=== PATIENT | female | born 1990 | race Hispanic/Latino ===

== ENCOUNTER 2021-12-24 18:08 | Inpatient (IN) | payer MEDICAID, OTHER ==
[2021-12-24 19:06] VITALS: BMI 29.7
[2021-12-24] MEDS ORDERED: hydrALAZINE 20 MG/ML VIAL SLOW IVP PRN (19:46)
[2021-12-24] MEDS ORDERED: Carboprost 250 MCG/ML AMP IM PRN (21:53)
[2021-12-24] MEDS ORDERED: Famotidine/PF 20 mg/2ml Vial SLOW IVP PRN (21:53)
[2021-12-24] MEDS ORDERED: Lidocaine 1% (PF) 30 ML VIAL SC PRN (21:53)
[2021-12-24] MEDS ORDERED: Methylergonovine 0.2 MG/ML VIAL IM PRN (21:53)
[2021-12-24] MEDS ORDERED: Ibuprofen 800 MG TAB PO PRN (21:53)
[2021-12-24] MEDS ORDERED: Bicitra 30 ML UDCUP PO PRN (21:53)
[2021-12-24] MEDS ORDERED: Misoprostol 200 MCG TAB PR PRN (21:53)
[2021-12-24] MEDS ORDERED: Diphenoxylate HCl/Atropine Tablet PO PRN (21:53)
[2021-12-24] MEDS ORDERED: Butorphanol Tartrate 1 MG/ML VIAL ONE (23:22)
[2021-12-24] MEDS: Butorphanol Tartrate 1 MG/ML VIAL SLOW IVP PRN (23:28)
[2021-12-25 00:39] LABS: Hep B Surf Ag Non-Reactive S/CO (NonReactive); Syphilis Antibody Nonreactive (Nonreactive); Syphilis Antibody Index 0.04 S/CO (<1.00 Non-Reactive)
[2021-12-25 00:42] LABS: HBSAg Index 0.14 S/CO (0-0.99)
[2021-12-25 01:03] LABS: Hemoglobin 12.6 g/dL (12.0-15.5); Mean Corpuscular HGB CONC 34.6 g/dL (32.0-36.0); Mean Corpuscular Hemoglobin 29.9 pg (27.0-33.0); Mean Corpuscular Volume 86.5 fl (81.6-98.3); Mean Platelet Volume 10.2 fl (7.4-10.4); Platelet Count 233 10x3/uL (150-450); RBC Distribution Width 12.7 % (11.5-14.5); Red Blood Cell (RBC) Count 4.21 10x6/uL (3.90-5.03); White Blood Cell (WBC) Count 14.8 10x3/uL (3.5-10.5)
[2021-12-25 01:04] LABS: Lymphocytes 14 % (21-51); Monocytes 6 % (0-10)
[2021-12-25 01:05] LABS: Platelet Morphology Comment Appears Adequate; RBC Morphology Normal
[2021-12-25 01:07] LABS: SARS-CoV-2 NAA Rapid Test Not Detected (NotDetected)
[2021-12-25] MEDS: Butorphanol Tartrate 1 MG/ML VIAL SLOW IVP PRN (01:18)
[2021-12-25 01:41] LABS: MDiff Complete? YES; Neutrophil 80 % (42-75)
[2021-12-25] MEDS: NS w/ Oxytocin 30 units 500 ML IV SCH ×2 (02:30→03:06)
[2021-12-25] MEDS ORDERED: NS w/ Oxytocin 30 units 500 ML IV SCH (05:46)
[2021-12-25] MEDS ORDERED: Benzocaine-Menthol 82.5 ML CAN TOP PRN (05:46)
[2021-12-25] MEDS ORDERED: Bisacodyl 10 MG SUPP PR PRN (05:46)
[2021-12-25] MEDS ORDERED: hydrALAZINE 20 MG/ML VIAL SLOW IVP PRN (05:46)
[2021-12-25] MEDS ORDERED: Ondansetron PF 4 MG/2 ML Vial IVP PRN (05:46)
[2021-12-25] MEDS ORDERED: HYDROcodone/Acetaminophen 5/325 mg Tablet PO PRN ×2 (05:46)
[2021-12-25] MEDS ORDERED: Milk Of Magnesia 30 ML UDCUP PO PRN (05:46)
[2021-12-25] MEDS ORDERED: Lanolin Ointment 7 GM TUBE TOP PRN (05:46)
[2021-12-25] MEDS ORDERED: Promethazine HCl 25 MG/ML VIAL IM PRN (05:46)
[2021-12-25] MEDS ORDERED: Boostrix 0.5 ML (Tdap) VIAL IM ONE (05:46)
[2021-12-25] MEDS ORDERED: Zolpidem Tartrate 5 MG TAB PO PRN (05:46)
[2021-12-25] MEDS ORDERED: diphenhydrAMINE 25 MG CAP PO PRN (05:46)
[2021-12-25] MEDS ORDERED: Preparation H Ointment 28 GM TUBE PR PRN (05:46)
[2021-12-25] MEDS: Ibuprofen 800 MG TAB PO SCH ×3 (06:30→21:33)
[2021-12-25] MEDS: Prenatal Vitamin 1 TAB PO SCH (09:00)
[2021-12-25] MEDS: Docusate 100 MG CAP PO SCH ×2 (09:00→21:33)
[2021-12-26 00:57] VITALS: BP 103/56
[2021-12-26] MEDS: Ibuprofen 800 MG TAB PO SCH ×2 (05:55→14:43)
[2021-12-26 07:22] VITALS: TEMP 98.6
[2021-12-26] MEDS ORDERED: Acetaminophen 500 MG TAB PO PRN (07:46)
[2021-12-26] MEDS: Docusate 100 MG CAP PO SCH (08:42)
[2021-12-26] MEDS: Prenatal Vitamin 1 TAB PO SCH (08:42)
== END 2021-12-26 16:28 | disposition home or self-care (01) | DRG 807 ==
LOC: CSHLD/OP 18:08 → CSHLD 23:21 → CSHPP 12-25 05:10
PROVIDERS: ADMIT Obstetrics & Gynecology; ATTEND Obstetrics & Gynecology
PROC: 10E0XZZ Delivery of Products of Conception, External Approach (ICD-10-PCS; principal; 2021-12-25)
PROC: 0HQ9XZZ Repair Perineum Skin, External Approach (ICD-10-PCS; 2021-12-25)
DX: O24.429 Gestational diabetes mellitus in childbirth, unspecified control (principal); Z37.0 Single live birth; O70.0 First degree perineal laceration during delivery; Z20.822 Contact with and (suspected) exposure to COVID-19; Z3A.38 38 weeks gestation of pregnancy
CPT/HCPCS: 36415; 36416; 85025; 85027; 86780; 86850; 86900; 86901; 87340; 99285; J0595; J2001; J2590; U0002